=== PATIENT | female | born 1945 | race Caucasian/White ===

== ENCOUNTER 2021-10-11 08:01 | Outpatient (RCR) | payer MEDICARE, BC, SELFPAY | END 2022-01-18 17:20 | disposition home or self-care (01) | PROVIDERS: PCP Family Medicine; Visit Provider Physician Assistant Surgical | DX: M75.01 Adhesive capsulitis of right shoulder (principal); M25.511 Pain in right shoulder; Z51.89 Encounter for other specified aftercare | CPT/HCPCS: 97110 ==

== ENCOUNTER 2021-12-28 10:28 | Day surgery (SDC) | payer MEDICARE, BC, SELFPAY ==
[2021-12-22] MEDS: KETOROLAC OPHTH 0.5% 1 DROP EYE-RIGHT ×3 (18:30→18:40)
[2021-12-28 10:37] VITALS: BP 120/62; PULSE 58; RESP 16; TEMP 36.6; O2SAT 96; BMI 31.9
[2021-12-28] MEDS: TETRACAINE 0.5% OPHTH 1 DROP EYE-RIGHT ×2 (11:00→11:05)
[2021-12-28] MEDS: KETOROLAC OPHTH 0.5% 1 DROP EYE-RIGHT ×3 (11:00→11:10)
--- NOTE | 2021-12-28 11:21 | SUR.PREOP ---
The eye drops brought by the patient (Ketorolac and Prednisolone) are examined and I have determined they are labeled by the patient's pharmacy for this patient as prescribed by the surgeon. The bottles are intact, recently obtained and appear to be correct.
[2021-12-28] MEDS: TETRACAINE 0.5% OPHTH 2 DROP EYE-RIGHT (11:35)
[2021-12-28] MEDS: BALANCED SALT IRRIG SOLN 15 ML EYE-RIGHT (11:40)
--- NOTE | 2021-12-28 12:12 | W.ANESCHARGE ---
Anesthesia Charges Start Date/Time Anesthesia Start Date: 12/28/21 Anesthesia Start Time: 11:31 Stop Date/Time Anesthesia Stop Date: 12/28/21 Anesthesia Stop Time: 12:15 Summary Emergency: No Extremes of Age: Over 70-CPT 37916
[2021-12-28 12:15] VITALS: BP 143/75; PULSE 57; RESP 20; TEMP 36.5; O2SAT 97
--- NOTE | 2021-12-28 12:41 | W.PM.OPTPROC ---
Procedure Note Date of procedure: 12/28/21 Will [facility] bill your pro fee for this procedure?: Yes Procedure Description: SURGEON: Dior Wick MD PREOPERATIVE DIAGNOSIS: 1. Nuclear sclerotic cataract, right eye. 2. Miosis, right eye. POSTOPERATIVE DIAGNOSIS: 1. Nuclear sclerotic cataract, right eye. 2. Miosis, right eye. NAME OF OPERATION: Phacoemulsification of cataract with posterior chamber intraocular lens implantation in the right eye with pupilloplasty. ANESTHESIA: Topical. ESTIMATED BLOOD LOSS: Less than 2 cc. COMPLICATIONS: None. PATHOLOGY SPECIMEN: None. INDICATIONS: See consult note for details. The risks, benefits and alternatives of the procedure were explained to the patient, who elected to proceed and signed informed consent to do so. PROCEDURE: The patient was brought to the pre-holding area where the right eye was identified as the operative eye. I placed my initials above this eye. The patient received eye drops consisting of 0.5% tetracaine, 1% tropicamide, 10% phenylephrine, and 0.5% ketorolac. The patient was then brought to the operating room where the right eye was again identified as the operative eye. The eye was prepped with Betadine and draped in the usual sterile ophthalmic fashion. A #15 super-sharp blade was used to create a paracentesis site. 1% non-preserved intracameral lidocaine was injected into the anterior chamber. Endocoat was injected into the anterior chamber. A 2.4 mm keratome was used to create a three-plane self-sealing incision 1 mm anterior to the temporal limbus. A #15 super-sharp blade was used to create four additional paracentesis sites. Four Grieshaber iris hooks were placed in order to stretch the iris. A cystotome was used to create an anterior capsular leaflet. The Utrata forceps were used to extend this to form a continuous curvilinear capsulorrhexis. Hydrodissection was performed. The cataract was removed with phacoemulsification using the [id number] technique. The irrigation and aspiration tip was used to remove the remaining cortex. Healon was injected into the capsular bag. An GAVINO ZCB00 intraocular lens of 21.0 diopters was injected into the capsular bag. The four Grieshaber iris hooks were removed. The irrigation and aspiration tip was used to remove the remaining viscoelastic. Miostat was injected into the anterior chamber. Balanced salt solution on a cannula was used to hydrate the wound, and the wound was found to be watertight. The pupil was noted to be round. DISPOSITION: The patient was taken to the recovery room and discharged to home in stable condition. The patient was instructed to call me or go to the emergency department with any sudden change, including dramatic loss of vision, severe pain in the eye or eyebrow region, nausea, or vomiting. The patient will follow up in the clinic tomorrow morning. Surgeon: Dior Wick MD
== END 2021-12-28 12:47 | disposition home or self-care (01) ==
PROVIDERS: PCP Family Medicine; Visit Provider Ophthalmology
PROC: (CPT 66982; principal; 2021-12-28 10:30)
DX: H25.11 Age-related nuclear cataract, right eye (principal); H57.03 Miosis
CPT/HCPCS: 66982; 00142; 99100; A9270; J2250; J3010; V2632

== ENCOUNTER 2022-01-18 06:40 | Day surgery (SDC) | payer MEDICARE, BC, SELFPAY ==
[2022-01-18] MEDS: KETOROLAC OPHTH 0.5% 1 DROP EYE-LEFT ×3 (06:55→07:10)
[2022-01-18] MEDS: TETRACAINE 0.5% OPHTH 1 DROP EYE-LEFT ×2 (06:55→07:00)
[2022-01-18 07:00] VITALS: BMI 34.9
[2022-01-18] MEDS: SODIUM CHLORIDE 0.9 % (FLUSH) 10 ML SYRINGE IVF (07:05)
[2022-01-18 07:24] VITALS: BP 138/71; PULSE 62; RESP 18; TEMP 36.8
--- NOTE | 2022-01-18 07:47 | SUR.PREOP ---
needing to do a covid swab called [facility] and test has not been resulted yet
[2022-01-18] MEDS: TETRACAINE 0.5% OPHTH 2 DROP EYE-LEFT (08:02)
[2022-01-18 08:08] LABS: SARS Antigen* negative (Negative)
[2022-01-18] MEDS: BALANCED SALT IRRIG SOLN 15 ML EYE-LEFT (08:08)
[2022-01-18 08:34] VITALS: BP 147/67; PULSE 56; RESP 16; TEMP 36.7; O2SAT 96
--- NOTE | 2022-01-18 08:42 | W.ANESCHARGE ---
Anesthesia Charges Start Date/Time Anesthesia Start Date: 01/18/22 Anesthesia Start Time: 08:00 Stop Date/Time Anesthesia Stop Date: 01/18/22 Anesthesia Stop Time: 08:40 Summary Emergency: No Extremes of Age: Over 70-CPT 61942
--- NOTE | 2022-01-18 09:07 | W.ANESCHARGE ---
Anesthesia Charges Start Date/Time Anesthesia Start Date: 01/18/22 Anesthesia Start Time: 08:00 Stop Date/Time Anesthesia Stop Date: 01/18/22 Anesthesia Stop Time: 08:40 Summary Emergency: No Extremes of Age: Over 70-CPT 77174
--- NOTE | 2022-01-18 09:37 | P.OPTPRC_ITS ---
Procedure Note Date of procedure: 01/18/22 Will [facility] bill your pro fee for this procedure?: Yes Procedure Description: SURGEON: Dior Wick MD PREOPERATIVE DIAGNOSIS: 1. Nuclear sclerotic cataract, left eye. 2. Miosis, left eye. POSTOPERATIVE DIAGNOSIS: 1. Nuclear sclerotic cataract, left eye. 2. Miosis, left eye. NAME OF OPERATION: Phacoemulsification of cataract with posterior chamber intraocular lens implantation in the left eye with pupilloplasty. ANESTHESIA: Topical. ESTIMATED BLOOD LOSS: Less than 2 cc. COMPLICATIONS: None. PATHOLOGY SPECIMEN: None. INDICATIONS: See consult note for details. The risks, benefits and alternatives of the procedure were explained to the patient, who elected to proceed and signed informed consent to do so. PROCEDURE: The patient was brought to the pre-holding area where the left eye was identified as the operative eye. I placed my initials above this eye. The patient received eye drops consisting of 0.5% tetracaine, 1% tropicamide, 10% phenylephrine, and 0.5% ketorolac. The patient was then brought to the operating room where the left eye was again identified as the operative eye. The eye was prepped with Betadine and draped in the usual sterile ophthalmic fashion. A #15 super-sharp blade was used to create a paracentesis site. 1% non-preserved intracameral lidocaine was injected into the anterior chamber. Endocoat was injected into the anterior chamber. A 2.4 mm keratome was used to create a three-plane self-sealing incision 1 mm anterior to the temporal limbus. A #15 super-sharp blade was used to create four additional paracentesis sites. Four Grieshaber iris hooks were placed in order to stretch the iris. A cystotome was used to create an anterior capsular leaflet. The Utrata forceps were used to extend this to form a continuous curvilinear capsulorrhexis. Hydrodissection was performed. The cataract was removed with phacoemulsification using the [id number] technique. The irrigation and aspiration tip was used to remove the remaining cortex. Healon was injected into the capsular bag. An GAVINO ZCB00 intraocular lens of 21.5 diopters was injected into the capsular bag. The four Grieshaber iris hooks were removed. The irrigation and aspiration tip was used to remove the remaining viscoelastic. Miostat was injected into the anterior chamber. Balanced salt solution on a cannula was used to hydrate the wound, and the wound was found to be watertight. The pupil was noted to be round. DISPOSITION: The patient was taken to the recovery room and discharged to home in stable condition. The patient was instructed to call me or go to the emergency department with any sudden change, including dramatic loss of vision, severe pain in the eye or eyebrow region, nausea, or vomiting. The patient will follow up in the clinic tomorrow morning. Surgeon: Dior Wick MD
== END 2022-01-18 09:20 | disposition home or self-care (01) ==
PROVIDERS: PCP Family Medicine; Visit Provider Ophthalmology
PROC: (CPT 66982; principal; 2022-01-18 06:45)
DX: H25.12 Age-related nuclear cataract, left eye (principal); H57.03 Miosis
CPT/HCPCS: 66982; 00142; 87426; 99100; A9270; J2250; J3010; V2632

== ENCOUNTER 2022-02-20 06:26 | Day surgery (SDC) | payer MEDICARE, BC, SELFPAY ==
[2022-02-20] VITALS (11 sets, daily range): BP systolic 134–181; BP diastolic 71–95; PULSE 60–68; RESP 16–18; TEMP 36.4–36.7; O2SAT 95–99; BMI 31.8
[2022-02-20] MEDS: lidocaine HCL 2 % MULTIDOSE 20 ML VIAL INJECTION (07:00)
[2022-02-20] MEDS: BUPIVACAINE 0.5% 30 ML INJECTION (07:00)
--- NOTE | 2022-02-20 08:33 | PM.ORPRC ---
Procedure Note Date of procedure: 02/20/22 Procedure: PREOPERATIVE DIAGNOSIS: 1. Left dorsal long finger overlying PIP joint region benign mass POSTOPERATIVE DIAGNOSIS: 1. Left dorsal long finger overlying PIP joint region benign mass PROCEDURE: 1. Left dorsal long finger benign mass open excision (5 mm in diameter) SURGEON: Blayne Rollins MD. MACHINE FANCY STITCHER: Michele Arora PA-C - Of note, an inventory control assistant was critical for this case to aid in patient positioning, tissue retraction, limb manipulation/positioning, patient safety, & closure. ANESTHESIA: Local anesthetic (50:50 mixture of 2% lidocaine plain and 0.5% marcaine plain)-10 mL total for digital block EBL: Less than 5 mL IMPLANTS: None TOURNIQUET: 10 minutes digital tourniquet COMPLICATIONS: None evident INDICATIONS: The patient is a pleasant 76-year-old female who has experienced left dorsal long finger mass/growth developing over the course of the last few months. It is becoming large enough to start to catch on things such as putting her hand in her pocket or other things around the house. Given the failure of nonoperative management, and how this affects daily life, surgery was recommended. DESCRIPTION OF PROCEDURE: Following a thorough discussion of risks, benefits, and alternatives consent was obtained and the operative extremity was marked. The patient was brought to the operating room and placed supine on the operating table. No antibiotics were administered as this was planned to be a local case only. Proper time-out was performed identifying proper patient, site, and procedure. The operative extremity was prepped and draped in the appropriate sterile fashion using ChloraPrep. The limb was exsanguinated and the tourniquet inflated. A longitudinal incision was made on the dorsal aspect of the left long finger overlying the PIP joint immediately overlying this growth/tumor. Sharp incision through the skin, and blunt dissection through subcutaneous tissue allowed us to identify the tumor readily. It was mobilized from the surrounding subcutaneous tissue. It appeared to be intimate with the extensor tendon itself. It did not appear to be encapsulated but rather thickening of the extensor tendon mechanism. It was sharply divided with a 15 blade around its edges down to its true extensor tendon. We did divide longitudinally the extensor tendon to further inspect the medially deep, but did not see any further growth. The specimen was sent for permanent pathology. At this stage, the tourniquet was deflated and hemostasis achieved. Closure was performed with 4-0 Monocryl and Exofin glue. Soft dressings were applied, and the patient was awoken/transferred to the recovery room in stable condition. PLAN: 1. Encourage elevation of the operative extremity. 2. Range of motion of the operative extremity/digits as tolerated. 3. Ibuprofen, acetaminophen and/or Percocet as needed for pain. 4. Follow up with PA visit in 12-16 days for wound check.
== END 2022-02-20 08:41 | disposition home or self-care (01) ==
PROVIDERS: PCP Family Medicine; Visit Provider Orthopaedic Surgery Sports Medicine
PROC: (CPT 26160; principal; 2022-02-20 07:30)
DX: M67.442 Ganglion, left hand (principal)
CPT/HCPCS: 26160; 88305; J3490

== ENCOUNTER 2024-05-22 06:24 | Emergency (ER) | payer MEDICARE, BC, SELFPAY ==
[2024-05-22 06:31] VITALS: BP 161/79; PULSE 60; RESP 16; TEMP 36.6; O2SAT 98
[2024-05-22 06:39] LABS: Appearance Urine Slightly Cloudy (Clear); Bilirubin Urine 3+ (Negative); Blood Urine 3+ (Negative); Color Urine Red (Yellow); Glucose Urine Trace (Negative); Ketones Urine 1+ (Negative); Leukocyte Esterase Urine 3+ (Negative); Nitrite Urine Negative (Negative); Protein Urine 3+ (Negative); Specific Gravity Urine <= 1.005 (1.000-1.030); pH Urine 8.5 (5.0-8.5)
[2024-05-22 06:58] LABS: Bacteria Urine Moderate; RBC Urine >100 (0-2); Squamous Epithelial Cell Urine Moderate (None-Few); WBC Urine 25-50 (0-5)
--- NOTE | 2024-05-22 07:19 | ED.GENADULT ---
HPI - General Adult General Chief complaint: Urogenital Problems, Female Stated complaint: Blood in urine Time Seen by Provider: 05/22/24 06:42 Source: patient Mode of arrival: ambulatory Limitations: no limitations History of Present Illness HPI narrative: Patient woke this morning 2-1/2 hours ago with feeling of intense urinary frequency and urgency. She had burning with initial urination this morning and then within about 15 minutes, had the sudden urge to urinate again. She continued to have this every 15-20 minutes, gradually noticing pink tinged urine and then iliana bloody urine over the course of the couple of hours. She called the clinic triage line and was advised to come to the emergency department because of the bleeding. She does not take any anticoagulants, has no history of trauma. She was asymptomatic last night when she went to bed. No fever, no back pain, no nausea or vomiting. No history of kidney stones. Is still exhibiting significant frequency and urgency as well as some dysuria. Has not tried any peridium or other similar medications to help with symptoms. No history of urological surgeries but has had a hysterectomy. Reports normal kidney function. Just saw her safety instruction police officer yesterday. Reports that she has never had a bladder infection before. Past medical history notable for hypertrophic cardiomyopathy. She is treated with metoprolol and atorvastatin for this. Denies other long-term prescription medications. No allergies. Nonsmoker. She has also had a cholecystectomy as well as the hysterectomy for abdominal surgeries. ROS is notable for the urinary symptoms only, otherwise denies times 12 systems. Related Data Home Medications ?Medication ?Instructions ?Recorded ?Confirmed atorvastatin 20 mg PO HS 12/17/21 05/22/24 cholecalciferol (vitamin D3) 25 25 mcg PO DAILY 12/27/21 05/22/24 mcg (1,000 unit) capsule famotidine 20 mg tablet 20 mg PO BID PRN 12/27/21 05/22/24 metoprolol succinate 25 mg 25 mg PO DAILY 12/27/21 05/22/24 tablet,extended release 24 hr Previous Rx's ?Medication ?Instructions ?Recorded ciprofloxacin HCl 500 mg tablet 500 mg PO Q12H #14 tabs 05/22/24 Allergies Allergy/AdvReac Type Severity Reaction Status Date / Time No Known Drug Allergies Allergy Verified 02/22/24 10:26 [facility] Medical History GROVER on CPAP ?G47.33 - Obstructive sleep apnea (adult) (pediatric) (ICD-10) ?Z99.89 - Dependence on other enabling machines and devices (ICD-10) Obesity ?E66.9 - Obesity, unspecified (ICD-10) Impaired fasting glucose ?R73.01 - Impaired fasting glucose (ICD-10) Hypertrophic cardiomyopathy ?I42.2 - Other hypertrophic cardiomyopathy (ICD-10) Hyperlipidemia ?E78.5 - Hyperlipidemia, unspecified (ICD-10) Closed fracture of unspecified part of humerus ?S42.309A - Unspecified fracture of shaft of humerus, unspecified arm, initial encounter for closed fracture (ICD-10) Cellulitis and abscess of other specified site ?L03.818 - Cellulitis of other sites (ICD-10) ?L02.818 - Cutaneous abscess of other sites (ICD-10) Anal fissure ?K60.2 - Anal fissure, unspecified (ICD-10) Surgical History History of excision of mass (02/20/22) ?Z98.890 - Other specified postprocedural states (ICD-10) Hx of rhinoplasty ?Z98.890 - Other specified postprocedural states (ICD-10) Hx of hysterectomy ?Z90.710 - Acquired absence of both cervix and uterus (ICD-10) History of total left knee replacement (TKR) (~12/2010) ?Z96.652 - Presence of left artificial knee joint (ICD-10) Hx of dilation and curettage ?Z98.890 - Other specified postprocedural states (ICD-10) Hx of colonoscopy ?Z98.890 - Other specified postprocedural states (ICD-10) Hx of cholecystectomy ?Z90.49 - Acquired absence of other specified parts of digestive tract (ICD-10) Social History Smoking Status: Never smoker Do you use any of these nicotine containing products: None How often do you have a drink containing alcohol: monthly or less Alcohol type: wine How many standard drinks containing alcohol do you have on a typical day: 1 or 2 How often do you have six or more drinks on one occasion: Never AUDIT-C Alcohol total score: 1 Non-prescribed substance use: denies use Caffeine: Yes (daily) Are you using contraception or practicing any form of control: No Exam Const: Vital Signs, click to edit/add: Vital Signs - 24 hr 05/22/24 06:31 Temperature 97.8 F Pulse Rate [Pulse Oximeter] 60 Respiratory Rate 16 Blood Pressure [Ri ght Upper Arm] 161/79 H Pulse Oximetry 98 Oxygen Delivery Me thod Room Air Documenting provider has reviewed patient's vital signs: yes Common normals: no apparent distress and alert General appearance: cooperative and well kempt Other: Very friendly and cooperative. Excellent historian. HENMT: Face and sinus: normal facial exam Eye: General eye: normal appearance of both eyes Neck & C-Spine: General: normal visual inspection Resp: Common normals: normal respiratory effort and no use of accessory muscles Effort & inspection: able to speak in complete sentences GI: Common normals: Normal to inspection, nondistended, normoactive bowel sounds present, soft to palpation, non-tender, no hepatosplenomegaly and no masses Palpation: soft and no hepatosplenomegaly : Common normals: no CVA tenderness Bladder/kidney exam: no CVA tenderness Back & Pelvis: Common normals: no CVA tenderness Neuro: Common normals: gait normal Sensorium/orientation: alert Speech: speech normal Psych: Common normals: speech normal Appearance: well kempt Attitude: engaged Speech: normal speech Mood and affect: euthymic mood Insight: insight good Judgement: judgment good Skin: Common normals: no rashes or lesions noted General skin exam: no rashes or lesions noted Course Course ED Course: 78-year-old female presenting with symptoms of urinary urgency, frequency and dysuria and iliana hematuria. No anticoagulants or signs of significant persistent hemorrhage. Exam is very reassuring. Urinalysis is reviewed and is very suspicious for urinary tract infection. No signs of sepsis, pyelonephritis or urinary trauma. Counseled patient that in these settings if there is clear indication that and infection is present, it is best to treat for the infection and do further workup only if the bleeding does not resolve. She is understanding and agreeable to this plan. Will start ciprofloxacin 500 mg p.o. b.i.d. for 7 days, a give dose of Pyridium and Tylenol here in the ED. Counseled the cherry picker operator some more Pyridium, urinary color changes discussed. Prescription for ciprofloxacin sent to pharmacy as well. Counseled that symptoms should improve markedly within about 24 hours, the bleeding should cease within 48 hours. If the bleeding has not ceased in a few days, she should follow-up in the clinic promptly for further evaluation. Otherwise just because of the amount of bleeding and potential that this could be from an underlying bladder mass or other more troublesome etiology, I have recommended a follow-up urinalysis in the clinic in 4-6 weeks. If the hematuria is absent, no further workup is needed but if still present, would recommend urology referral for cystoscopy and evaluation. Written instructions provided, alarm symptoms reviewed that would warrant ED presentation. Urine will be cultured to ensure appropriate antibiotic treatment. Vital Signs Vital signs: Initial Vital Signs Temperature 97.8 F 05/22/24 06:31 Temperature Source Temporal Artery Scan 05/22/24 06:31 Pulse Rate 60 05/22/24 06:31 Respiratory Rate 16 05/22/24 06:31 Blood Pressure 161/79 H 05/22/24 06:31 Blood Pressure Mean 106 H 05/22/24 06:31 Blood Pressure Position Sitting 05/22/24 06:31 Pulse Oximetry 98 05/22/24 06:31 Oxygen Delivery Method Room Air 05/22/24 06:31 Vital Signs Temperature 97.8 F 05/22/24 06:31 Pulse Rate 60 05/22/24 06:31 Respiratory Rate 16 05/22/24 06:31 Blood Pressure 161/79 H 05/22/24 06:31 Pulse Oximetry 98 05/22/24 06:31 Oxygen Delivery Method Room Air 05/22/24 06:31 Temperature 97.8 F 05/22/24 06:31 Pulse Rate 60 05/22/24 06:31 Respiratory Rate 16 05/22/24 06:31 Blood Pressure 161/79 H 05/22/24 06:31 Pulse Oximetry 98 05/22/24 06:31 Oxygen Delivery Method Room Air 05/22/24 06:31 Medical Decision Making Lab Data Lab results reviewed: Yes I reviewed the patient's lab results Lab results narrative: Lots of blood but also signs of infection. Labs: Lab Results 05/22/24 Range/Units 06:32 Urine Color Red A (Yellow) Urine Appearance Slightly Cloudy A (Clear) Urine pH 8.5 (5.0-8.5) Ur Specific [place] <= 1.005 (1.000-1.030) Urine Protein 3+ A (Negative) Urine Glucose (UA) Trace A (Negative) Urine Ketones 1+ A (Negative) Urine Blood 3+ A (Negative) Urine Nitrite Negative (Negative) Urine Bilirubin 3+ A (Negative) Urine Urobilinogen 2.0 A (0.2-1.0) Ur Leukocyte Esterase 3+ A (Negative) Urine RBC >100 A (0-2) Urine WBC 25-50 A (0-5) Ur Squamous Epith Cells Moderate A (None-Few) Urine Bacteria Moderate A (None) Discharge Plan Discharge Clinical Impression: Acute hemorrhagic cystitis Patient Disposition: Home w/ Parent or Adult Condition: Stable Instructions: Urinary Tract Infection in Women (DC) Additional Instructions: As we discussed, the blood in your urine is likely caused by the infection that is also apparent. That is not seem to be any obvious signs of a kidney infection, bloodstream infection or other reason based on your history and limited exam. I would recommend that we empirically treat for the bladder infection as most of the time this does cause the bleeding to slow down and stop within a few days. It is okay to use Tylenol 1000 mg 3 times daily for pain relief. You were given a dose of this here in the emergency department. Your also given a dose of phenazopyridine, a medication that is also sold [id number] under a ?urinary pain relief? label. I would recommend that you pick some of this up today when you cherry picker operator your antibiotic and take another dose this afternoon and possibly 1 at bedtime if you are still symptomatic. Remember that it will turn your urine neon orange. Sometimes if there is a lot of bleeding and blood clot formation, it may feel like you are physically unable to empty your bladder. If that happens, he should come back to the emergency department. For most people, symptoms approved markedly in 24 hours after starting antibiotics and the bleeding tends to cease within about 48 hours. If you are still noticing blood after 5 days, you should be seen in the clinic for follow-up. We would recommend that you make a follow-up appointment in 4-6 weeks to have your urine rechecked in the clinic to ensure that the bleeding has resolved and was not the sign of a hidden tumor or other complication. The antibiotic will be taken 1 pill 2 times daily for a full week. We will culture your urine and if there are signs that the infection was somehow resistant to this antibiotic, we will call you and change antibiotics. No news is good news. Come back right away to the emergency department if you have urinary retention as described above, persistent high fever, severe back pain or are exiting severe weakness. These would all be signs of infection complications. Activity Level: Activity as Tolerated Discharge Diet: Regular Prescriptions: New ciprofloxacin HCl 500 mg tablet 500 mg PO Q12H Qty: 14 0RF No Action atorvastatin 20 mg PO HS famotidine 20 mg tablet 20 mg PO BID PRN metoprolol succinate 25 mg tablet extended release 24 hr 25 mg PO DAILY cholecalciferol (vitamin D3) 25 mcg (1,000 unit) capsule 25 mcg PO DAILY Follow Up/Referrals: Nadeem Ramirez MD [Primary Care Provider] - (4-5 weeks for urine recheck to ensure the bleeding has resolved.) Stand Alone Forms: [employer] Info Instructions
[2024-05-22] MEDS: CIPROFLOXACIN 500 MG TABLET PO (07:22)
[2024-05-22] MEDS: PHENAZOPYRIDINE HCL 200 MG TABLET PO (07:23)
[2024-05-22] MEDS: ACETAMINOPHEN 500 MG TABLET 1000 MG PO (07:23)
--- OUTSIDE RECORDS SUMMARY | 2024-05-22 07:29 | XMS_ITS | Clinical Summary ---
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 0 4 Active atorvastatin (LIPITOR) 40 mg tabletIndications:H yperlipidemia, unspecified hyperlipidemia type Take 1 Tablet (40 mg) by mouth at bedtime. 90 Tablet 3 4 Active famotidine (PEPCID) 20 mg tabletIndications:C hronic GERD Take 1 Tablet (20 mg) by mouth 2 times daily if needed for Heartburn. 180 Tablet 3 4 Active metoprolol succinate (Toprol XL) 50 mg sustained-release tabletIndications:H ypertrophic cardiomyopathy (HC) Take 1 Tablet (50 mg) by mouth once daily. 90 Tablet 3 4 Active Active Problems Patient Care Coordination No te Formatting of this note migh t be different from the original. HF/Structural/Prevention Research Eligibility Review Date: 03/10/19 Upcoming Visit Location: [facility] Age: 73 y.o. Insurance: Medicare EF: 60+ HF: DNQ Structural: DNQ Prevention: Triglycerides: 77 HDL: 64 Non-HDL: 101 LDL: 86 A1c: 5.6 Diabetes: no Vesalius: Potential Problem Noted Date Diagnosed Date Mild aortic stenosis 05/20/2024 Overweight 12/13/2021 Prediabetes 11/22/2020 Obstructive sleep apnea 10/21/2019 Hypertrophic cardiomyopathy 06/04/2019 Hyperlipidemia 09/04/2017 Personal history of colonic polyps 03/02/2011 Overview (05/11/2022): Colonoscopy 02/2011 normal repeat in 5 years Colonoscopy 04/2022 TA, repeat in 7 years Resolved Problems Problem Noted Date Diagnosed Date Resolved Date Routine general medical exam ination at a health care facility 06/11/2007 11/22/2020 Overview (06/12/2007): Lipids - 10/31/05, cholesterol 220, LDL 140, TG 84 Dexa- 02/25/03 mammo-06/12/07 Colon - 11/22/05, next due in 2010, h/o colon polyps Pap/pelvic -none found, s/p hysterectomy for fibroids Thyroid- none found Hep B- series completed in 1999 Tetanus- Diabetic-no Encounters Date Type Department Care Team Description 05/22/2024 Nurse Triage [facility] [address] [place] [address] Nadeem Ramirez MD Urinary Problem 05/20/2024 9:[address] REPORTER Office Visit [facility] [address] [place] [address] Junior Almonte MD Follow Up (Hypertrophic cardiomyopathy /Zio patch 04/15/24/Echo 05/12/24 ) 05/20/2024 Travel 05/15/2024 Telephone [facility] [address] [place] [address] Nadeem Ramirez MD other (xray ) 05/12/2024 9:[address] REPORTER Ancillary Procedure [facility] [address] [place] [address] 05/12/2024 Travel 05/07/2024 3:[address] REPORTER Ancillary Procedure [facility] [address] [place] [address] 05/07/2024 2:[address] REPORTER Office Visit [facility] [address] [place] [address] Nadeem Ramirez MD Headache (Working with PT for headaches - PT recommending follow up with PCP for further work up. ) 05/07/2024 Travel 04/15/2024 8:[address] REPORTER Office Visit [address] [place] [address] from Last 3 Months Immunizations Name Administration Dates Next Due COVID-19 VACCINE SPIKEVAX (M ODERNA 50MCG/0.5ML) 12YO+ PFS 12/19/2023 DTaP 09/05/2017 Hepatitis B (Adult) 10/05/1999,03/02/1999,1998 Influenza A (H1N1), Inactivated 03/31/2009 Influenza A (H1N1), Inactiva valorie (Age >=3 Years) 03/31/2009 Influenza RIV4 (Age 18+ Year s) PRESERV FREE 01/27/2019 Influenza, High-dose Inactivated 024,12/29/2017,12/28/2016,02/08,12/26/2014,01/12/2014 Influenza, High-dose Quadriv alent Inactivated 01/09/2023,12/19/2021,12/24/2020,12/09 Influenza, IIV3 (Age 6-35 mos) 12/09/2008 Influenza, IIV3 (Age >=3 years) 01/05/20 13,12/14/2011,01/29/2011,01/18,12/08/2008,02/03/2008,02/01/2007 ,01/07/2007,03/05/2003,03/11/2002,01/26 Pneumococcal Conj 20-valent (Prevnar 20) 12/14/2022 Pneumococcal Poly,23-Valent (Pneumovax) 11/10/2011 Pneumococcal conj 13-Valent (Prevnar 13) 10/21/2014 RSV, Recombinant ADJ Reconst ituted (Arexvy 120MCG/0.5mL) 12/23/2022 Td (Age >=7 Years) 01/24/1999 Tdap 09/05/2017,06/12/2007 Tuberculin (PPD) 06/01/2008 Zoster (Shingrix-RZV, recombinant) 11/19/2017, Zoster (Zostavax-ZVL, live) 06/01/2008 Family History Medical History Relation Name Comments Emphysema Father Heart Disease Father [place] at 40, at 67 Heart Disease Maternal Aunt Heart Disease Maternal Uncle 1 Other Maternal Uncle 2 AAA Heart Disease Mother at 97 Osteoporosis Mother Other Mother sleep apnea/use s CPAP Anesthesia Problem Neg. Cancer-breast No Family History Cancer-colon No Family History Cancer-ovarian No Family History Relation Name Status Comments Father Maternal Aunt Maternal Uncle 1 Maternal Uncle 2 Mother Alive Neg. Social History Tobacco Use Types Packs/Day Years Used Date Smoking Tobacco: Never Smokeless Tobacco: Never Tobacco Cessation:Counseling Given: Yes Alcohol Use Standard Drinks/Week Comments Yes 0 (1 standard drink = 0.6 oz pur e alcohol) rare PHQ-2 Answer Date Recorded PHQ-2 TOTAL SCORE 0 12/19/2023 Social Connections Answer Date Recorded Do you often feel lonely or isolated from those around you? 0 12/19/2023 Financial Resource Strain Answer Date R ecorded Difficulty of Paying Living Expenses 3 12/19/2023 Difficulty of Paying Living Expenses Not on file 12/19/2023 Food Insecurity Answer Date Recorded Do you worry your food will run out before you are able to buy more? 1 12/19/2023 Transportation Needs Answer Date Record ed Does lack of transportation keep you from medica l appointments? 1 12/19/2023 Does lack of transportation keep you from work, meetings or getting things that you need? 1 12/19/2023 Housing Stability Answer Date Recorded What is your housing situation today? 1 12/19/2023 Utilities Answer Date Recorded Do you have trouble paying f or utilities (for example, heat, electricity, water, phone)? 1 12/19/2023 Comments No Sex and Gender Information Value Date Recorded Sex Assigned at Not on file Legal Sex Female 6:[address] REPORTER Gender Identity Not on file Sexual Orientation Not on file Obstetrics History Last Filed Vital Signs Vital Sign Reading Time Taken Comments Blood Pressure 110/65 05/20/2024 9:[address] REPORTER Pulse 73 05/20/2024 9:[address] REPORTER Temperature 37.7 C (99.8 F) 07/06/2022 8:54 AM CDT Respiratory Rate 11 11/28/2022 2:09 PM CDT Oxygen Saturation 96% 05/20/2024 9:[address] REPORTER Inhaled Oxygen Concentration - - Weight 83.9 kg (185 lb) 05/20/2024 9:[address] REPORTER Height 163.7 cm (5' 4.45) 12/19/2023 1:55 PM CD T Body Mass Index 31.31 12/19/2023 1:55 PM CDT Plan of Treatment Upcoming Encounters Date Type Department Care Team (Late st Contact Info) Description 07/11/2024 9:40 AM CDT Office Visit [facility] [address] [place] [address] Joseph Rosario MD [address] [place] [address] Health Maintenance Due Date Last Done Comments BMI (ht and wt on same day) for age 18+ 12/18/2024 12/19/2023, 12/14/2022, 12/26/2021, Additional history exists Depression screening for age 12+ 12/18/2024 12/19/2023, 12/14/2022, 12/14/2021, Additional history exists Medicare Wellness for age 65+ 12/19/2024, 12/14/2022, 12/13/2021, Additional history exists Tetanus booster 09/06/2027 09/05/2017, 05/24, 01/24/1999 Hepatitis C screening for ag e 18-79 Completed 02/10/2016, 04/29/2013 Tdap Completed 09/05/2017, 06/12/2007 Zoster (shingles) series for age 50+ Completed 11/19/2017, 09/05/2017, 06/01/2008 Pneumococcal series for age 50+ Completed 12/14/2022, 10/21/2014, 11/10/2011 RSV vaccine for adults or Completed 12/23/2022 COVID-19 vaccine series Completed 12/19/19 24, 06/11/2023, 01/09/2023, Additional history exists DEXA/DXA scan for age 65+ Completed 2023, 09/24/2018, 05/13/2013, Additional history exists Influenza for age 65+ Completed 01/14/2024 , 01/09/2023, 12/19/2021, Additional history exists Procedures Procedure Name Priority Date/Time Associated Diagnosis Comments ECHO TTE COMPLETE WO CONTRAST Routine 05/12/2024 9:[address] REPORTER Hypertrophic cardiomyopathy (HC) XR SPINE CERVICAL 3 VIEWS Routine 05/07/2024 3:[address] REPORTER Neck pain, chronic 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 Routine 04/15/2024 Hypertrophic cardiomyopathy (HC) XR DXA BONE DENSITY 2 SITES AXIAL Routine 12/24/2023 9:20 AM CDT Asymptomatic postmenopausal state ANTI HCV Routine 02/10/2016 7:[address] REPORTER Need for hepatitis C screening test from Last 3 Months or Most Recently Relevant to Health Maintenance Results * ECHO TTE COMPLETE WO CONTRAST (05/12/2024 9:[address] REPORTER) AORTIC VALVE MEAN PG 16 mmHg EJECTION FRACTION 76 % PEAK TR VELOCITY 2.9 m/s LVEDD 4.3 cm Anatomical Region Laterality Modality Ultrasound 05/12/2024 9:[address] REPORTER Narrative 05/12/2024 10:[address] REPORTER ECHOCARDIOGRAM NATIVIDAD CAMPO : 1945 78 years Study Date: 05/12/2024 9:09:06 AM Gender: F BP: 147/80 mmHg Height: 163.00 cm BSA: 1.91 m Weight: 85.00 kg Tech: MHR Referring MD: DARRYL IRIZARRY Site: [facility] Reading Location: MOBILE OP Patient Location: Outpatient. Procedure: 2D, Color Doppler and Spectral Doppler. Indication for study: hypertrophic cardiomyopathy Cardiac Rhythm: Regular.Study quality: Technically limited. Final Impressions: 1. Technically limited exam. 2. Normal left ventricular size, mildly increased wall thickness, hyperdynamic global systolic function, calculated EF of 76 %. 3. Grade 2 pattern of LV diastolic filling. 4. Severe asymmetric left ventricular hypertrophy. 5. Right ventricular cavity size is normal, global systolic RV function is normal. 6. Moderately enlarged left atrium. 7. The aortic valve is calcified and trileaflet, mild stenosis and trivial regurgitation. The aortic valve peak velocity is 2.4 m/s, the peak gradient is 23 mmHg, and the mean gradient is 16 mmHg. The aortic valve area is 2.69 cm with a dimensionless index of 0.93. The stroke volume index is 83.8 ml/m . 8. The mitral valve is normal, mild mitral regurgitation. 9. Tricuspid valve is normal. 10. No pericardial effusion. Chamber Sizes and Function Normal left ventricular size, mildly increased wall thickness, hyperdynamic global systolic function, calculated EF of 76 %. Severe asymmetric left ventricular hypertrophy. No resting regional wall motion abnormality visualized. Left atrial size is moderately enlarged. Right ventricular cavity size is normal, global systolic RV function is normal. RV wall thickness is normal. The right atrium is normal. Right atrial volume index is 15 ml/m . Right atrial area is 13 cm . The pulmonary artery is of normal size and origin. The sinus of Valsalva is normal sized. The ascending aorta is normal sized. Valves, RV Pressures and Diastolic Function The aortic valve is calcified and trileaflet, mild stenosis and trivial regurgitation. The mitral valve is normal in structure, mild mitral regurgitation. Spectral Doppler shows Grade 2 pattern of LV diastolic filling. The tricuspid valve is normal in structure. Tricuspid regurgitation is mild regurgitation. The tricuspid regurgitant velocity is 2.9 m/s, the estimated right ventricular systolic pressure is 33 mmHg plus right atrial pressure. There is mildly increased estimated pulmonary pressure by tricuspid regurgitation velocity and right atrial pressure. The pulmonic valve is normal. No pulmonary regurgitation. Masses, Effusion, Shunts There is no pericardial effusion. The inferior vena cava is normal sized, respiratory size variation greater than 50%. No left to right shunting was detected by limited color flow Doppler interrogation of the interatrial septum. MEASUREMENTS AND CALCULATIONS 2-D Measurements and LV Function: LVID (d) 4.3 cm Planimetered EF 76 % LVID (s) 2.2 cm LV FS% (2D) 48 % IVS (d) 1.3 cm LVOT diameter 1.9 cm LVPW (d) 1.0 cm HR 59 bpm Ao Sinus 3.0 cm LA Vol index 44 ml/m2 Ao ST junct 2.7 cm RA Vol index 15 ml/m2 Asc Ao 3.5 cm RA area 13 cm LA 4.4 cm RV Max 4C (d) 2.9 cm Diastology: Mitral Tissue Doppler E Peak 1.1 m/s e', Septum 0.05 m/s A Peak 1.1 m/s e', Lateral 0.05 m/s E/A 1.0 E/e' Average 20.96 DT 287 msec Aortic Valve: Vmax 2.4 m/s HAMZAH (V) 2.67 cm VTI 0.59 m HAMZAH (I) 2.69 cm LVOT V max 2.2 m/s Max PG 23 mmHg LVOT VTI 0.55 m Mean PG 16 mmHg SV 160 ml Dim Index 0.93 SV index 84 ml/m CO 9.4 l/min CI 4.9 l/min/m Mitral Valve: MVA 2.6 cm MV P 1/2 83 msec Tricuspid Valve and estimated PA pressures: TR Vmax 2.9 m/s TAPSE 2.6 cm TR maxG 33 mmHg . This study was interpreted by an [facility] accredited facility. Final Procedure Note Paige Reyes, [facility] - 05/12/2024 ECHOCARDIOGRAM NATIVIDAD CAMPO : 1945 78 years Study Date: 05/12/2024 9:09:06 AM Gender: F BP: 147/80 mmHg Height: 163.00 cm BSA: 1.91 m Weight: 85.00 kg Tech: R Referring MD: DARRYL IRIZARRY Site: [facility] Reading Location: MOBILE OP Patient Location: Outpatient. Procedure: 2D, Color Doppler and Spectral Doppler. Indication for study: hypertrophic cardiomyopathy Cardiac Rhythm: Regular.Study quality: Technically limited. Final Impressions: 1. Technically limited exam. 2. Normal left ventricular size, mildly increased wall thickness,hyperdynamic global systolic function, calculated EF of 76 %. 3. Grade 2 pattern of LV diastolic filling. 4. Severe asymmetric left ventricular hypertrophy. 5. Right ventricular cavity size is normal, global systolic RV functionis normal. 6. Moderately enlarged left atrium. 7. The aortic valve is calcified and trileaflet, mild stenosis andtrivial regurgitation. The aortic valve peak velocity is 2.4 m/s, the peakgradient is 23 mmHg, and the mean gradient is 16 mmHg. The aortic valvearea is 2.69 cm with a dimensionless index of 0.93. The stroke volumeindex is 83.8 ml/m . 8. The mitral valve is normal, mild mitral regurgitation. 9. Tricuspid valve is normal. 10. No pericardial effusion. Chamber Sizes and Function Normal left ventricular size, mildly increased wall thickness,hyperdynamic global systolic function, calculated EF of 76 %. Severeasymmetric left ventricular hypertrophy. No resting regional wall motionabnormality visualized. Left atrial size is moderately enlarged. Rightventricular cavity size is normal, global systolic RV function is normal.RV wall thickness is normal. The right atrium is normal. Right atrialvolume index is 15 ml/m . Right atrial area is 13 cm . The pulmonaryartery is of normal size and origin. The sinus of Valsalva is normalsized. The ascending aorta is normal sized. Valves, RV Pressures and Diastolic Function The aortic valve is calcified and trileaflet, mild stenosis and trivialregurgitation. The mitral valve is normal in structure, mild mitralregurgitation. Spectral Doppler shows Grade 2 pattern of LV diastolicfilling. The tricuspid valve is normal in structure. Tricuspidregurgitation is mild regurgitation. The tricuspid regurgitant velocity is2.9 m/s, the estimated right ventricular systolic pressure is 33 mmHg plusright atrial pressure. There is mildly increased estimated pulmonarypressure by tricuspid regurgitation velocity and right atrial pressure.The pulmonic valve is normal. No pulmonary regurgitation. Masses, Effusion, Shunts There is no pericardial effusion. The inferior vena cava is normal sized,respiratory size variation greater than 50%. No left to right shunting wasdetected by limited color flow Doppler interrogation of the interatrialseptum. MEASUREMENTS AND CALCULATIONS 2-D Measurements and LV Function: LVID (d) 4.3 cm Planimetered EF 76 % LVID (s) 2.2 cm LV FS% (2D) 48 % IVS (d) 1.3 cm LVOT diameter 1.9 cm LVPW (d) 1.0 cm HR 59 bpm Ao Sinus 3.0 cm LA Vol index 44 ml/m2 Ao ST junct 2.7 cm RA Vol index 15 ml/m2 Asc Ao 3.5 cm RA area 13 cm LA 4.4 cm RV Max 4C (d) 2.9 cm Diastology: Mitral Tissue Doppler E Peak 1.1 m/s e', Septum 0.05 m/s A Peak 1.1 m/s e', Lateral 0.05 m/s E/A 1.0 E/e' Average 20.96 DT 287 msec Aortic Valve: Vmax 2.4 m/s HAMZAH (V) 2.67 cm VTI 0.59 m HAMZAH (I) 2.69 cm LVOT V max 2.2 m/s Max PG 23 mmHg LVOT VTI 0.55 m Mean PG 16 mmHg SV 160 ml Dim Index 0.93 SV index 84 ml/m CO 9.4 l/min CI 4.9 l/min/m Mitral Valve: MVA 2.6 cm MV P 1/2 83 msec Tricuspid Valve and estimated PA pressures: TR Vmax 2.9 m/s TAPSE 2.6 cm TR maxG 33 mmHg . This study was interpreted by an [facility] accredited facility. Final us Darryl Irizarry MD ECHO ORD Final Result * XR SPINE CERVICAL 3 VIEWS (05/07/2024 3:[address] REPORTER) Anatomical Region Laterality Modality CERVICAL SPINE Computed Radiogr aphy 05/08/2024 7:[address] REPORTER Impressions 05/08/2024 7:[address] REPORTER Degenerative disc disease C5-6 and C6-7. Multilevel degenerative facet arthropathy. Dictated by Aj Pandey MD @ 05/08/2024 7:29:03 AM (Electronically Signed) Narrative 05/08/2024 7:[address] REPORTER For Patients: As a result of the Century Cures Act, medical imaging exams and procedure reports are released immediately into your electronic medical record. You may view this report before your referring provider. If you have questions, please contact your health care provider. INDICATION: Chronic neck pain TECHNIQUE: Cervical spine 3 view. COMPARISON: None FINDINGS: Multilevel degenerative facet arthropathy. Lung apices clear. No vertebral body compression fracture. Discogenic spurring C5-6 and C6-7. Procedure Note Aj Pandey MD - 05/08/2024 For Patients: As a result of the Cures Act, medical imagingexams and procedure reports are released immediately into your electronicmedical record. You may view this report before your referring provider.If you have questions, please contact your health care provider. INDICATION: Chronic neck pain TECHNIQUE: Cervical spine 3 view. COMPARISON: None FINDINGS: Multilevel degenerative facet arthropathy. Lung apices clear. No vertebralbody compression fracture. Discogenic spurring C5-6 and C6-7. IMPRESSION: Degenerative disc disease C5-6 and C6-7. Multilevel degenerative facet arthropathy. Dictated by Aj Pandey MD @ 05/08/2024 7:29:03 AM (Electronically Signed) us Nadeem Ramirez MD GENERAL IMAGING Final Result * ZIO PATCH XT - weekly to monthly symptoms. (04/15/2024) 04/15/2024 Narrative Matthew Solorzano MD - 04/28/2024 12:[address] REPORTER SR with brief SVT and NSVT Please see scan document for full report. Signed By Matthew Solorzano MD Procedure Note Matthew Solorzano MD - 04/28/2024 SR with brief SVT and NSVT Please see scan document for full report. Signed By Matthew Solorzano MD us Darryl Irizarry MD CARDIAC SERVICES ORD F inal Result * XR DXA BONE DENSITY 2 SITES AXIAL (12/24/2023 9:20 AM CDT) Anatomical Region Laterality Modality Spine, HIPS, HIPL, HIPR Other Impressions 12/26/2023 4:22 PM CDT Normal bone density. RECOMMENDATIONS: The National Osteoporosis Foundation recommends pharmacologic treatment for patients with T-scores of -2.5 or less, patients with prior history of fragility fractures, or patients with 10-year probability of greater than 3% at hips or greater than 20% of suffering major osteoporotic fractures. Recommend continued optimization of calcium and vitamin D intake through dietary means and/or supplementation and regular exercise. Repeat scan recommended in 3-5 years. Haylee Albarado PA-C [facility] 12/26/2023 Narrative 12/26/2023 4:22 PM CDT For Patients: Results are automatically released to your [facility] ([employer]) account once available, in compliance with federal regulations. This means that you may see your results before your provider has had a chance to review them. Please allow 2-3 business days for your provider to comment on the results. XR DXA Bone Mineral Density (BMD) EXAM LOCATION: [address] [address] PATIENT NAME: Natividad Campo DATE OF : 1945 EXAM DATE: 12/24/2023 REQUESTING PROVIDER: Nadeem Ramirez MD GENDER AT : female HEIGHT: 5' 4.45 (12/19/2023) WEIGHT: 182 lb 12.8 oz (12/19/2023) MENOPAUSAL STATUS: Postmenopausal RACE/ETHNICITY: White RISK FACTORS: Family History of Hip Fracture (parental), Height Loss (2 inches or more), History of Fragility Fracture (at a major site), and White Race CURRENT MEDICATION FOR BONE LOSS: NONE INDICATION: Post-Menopause COMPARISON DATE(S): 2019 DXA scans are compared to prior studies for a patient only when the two (or more) studies were performed on the same scanner. It is not possible to compare data generated on one scanner to data from another because there are not standards in DXA equipment. This applies even if the two scanners are made by the same trestleman. PROCEDURE: Dual-energy x-ray absorptiometry performed with routine technique. Reporting is completed in the form of a T-score. The T-score represents the standard deviation from peak bone mass based on young healthy adult. A Z-score is used for diagnosis in premenopausal women, and for men under the age of 50. FINDINGS: RESULT LUMBAR SPINE L1 - L2 BMD: 1.441 g/cm2 T-Score: + 2.2 Z-Score: + 3.4 Change from prior in 2019: Increase 1.0%. RESULTS FEMUR Left femoral neck BMD: 1.045 g/cm2 T-Score: + 0.1 Z-Score: + 1.7 Change from prior in 2019: Decrease 2.0%. Right femoral neck BMD: 1.083 g/cm2 T-Score: + 0.3 Z-Score: + 2.0 Change from prior in 2019: Decrease 6.4%. Left hip BMD: 1.115 g/cm2 T-Score: + 0.8 Z-Score: + 2.3 Change from prior in 2019: Increase 0.1%. Right hip BMD: 1.141 g/cm2 T-Score: + 1.1 Z-Score: + 2.5 Change from prior in 2019: Increase 1.2%. WHO criteria: Normal: T-score at or above -1 SD Osteopenia: T-score between -1.1 and -2.4 SD Osteoporosis: T-score at or below -2.5 SD us Nadeem Ramirez MD DEXA Final Result * ANTI HCV (02/10/2016 7:[address] REPORTER) Pathologist [facility] HEPATITIS C ANTIBODY Non-Reacti ve Non-Reacti ve 02/10/2016 3:[address] REPORTER [facility] Blood BLOOD SPECIMEN / Unknown Venipuncture / Unknown 02/10/2016 7:[address] REPORTER 02/10/2016 7:[address] REPORTER Narrative [facility] - 02/10/2016 3:[address] REPORTER Antibodies to HCV not detected; does not exclude the possibility of exposure to HCV. us Nadeem Ramirez MD SEND OUTS Final Result [facility] 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
== END 2024-05-22 07:30 | disposition home or self-care (01) ==
PROVIDERS: Emergency Provider Family Medicine; PCP Family Medicine
DX: N30.01 Acute cystitis with hematuria (principal)
CPT/HCPCS: 81001; 87086; 99283; A9270

== ENCOUNTER 2024-10-03 17:47 | Emergency (ER) | payer MEDICARE, BC, SELFPAY ==
--- OUTSIDE RECORDS SUMMARY | 2024-10-03 17:48 | XMS_ITS | Clinical Summary ---
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 90 Tablet 3 4 Active gabapentin 300 mg capsuleIndications: Cervical radiculopathy Take 1 Capsule (300 mg) by mouth at bedtime. 30 Capsule 3 5 Active Active Problems Patient Care Coordination No [...] Encounters Date Type Department Care Team Description 10/03/2024 Nurse Triage [facility] [address] [place] [address] Nadeem Ramirez MD Blood In Stool 09/04/2024 3:40 PM CDT Office Visit [facility] [address] [place] [address] Joseph Rosario MD Musculoskeletal Problem (Follow up neck pain) 09/04/2024 Travel 08/07/2024 3:40 PM CDT Office Visit [facility] [address] [place] [address] Joseph Rosario MD Musculoskeletal Problem (Follow up neck pain, review MRI) 08/07/2024 Travel 07/17/2024 Telephone [facility] [address] [place] [address] Joseph Rosario MD Results (MRI) 07/14/2024 Orders Only [facility] Scanner 1 scan: (1-Ord) [facility], MRI CERVICAL SPINE, 07/14/2024 07/11/2024 9:40 AM CDT Office Visit [facility] [address] [place] [address] Joseph Rosario MD Musculoskeletal Problem (Consult neck pain) 07/10/2024 11:25 AM CDT Office Visit [facility] [address] [facility] [address] Nadeem Ramirez MD ER Follow up ([facility], 05/22/2024, blood in urine); Urinary Problem (Frequency, started a couple days ago) 07/10/2024 Travel 07/09/2024 Telephone [facility] [address] [place] [address] Nadeem Ramirez MD Lab (URINE CULTURE ) from Last 3 Months Immunizations Immunization Administration Dates Next Due COVID-19 VACCINE SPIKEVAX [...] Name Comments Emphysema Father Heart Disease Father [place] at 40, at 67 Heart Disease Maternal [...] on file 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 Gender Identity Not on file Sexual Orientation Not on file Obstetrics History Last Filed Vital Signs Vital Sign Reading Time Taken Comments Blood Pressure 125/75 09/04/2024 3:27 PM CDT Pulse 59 09/04/2024 3:27 PM CDT Temperature 36.7 C (98.1 F) 09/04/2024 3:27 PM CDT Respiratory Rate 11 11/28/2022 2:09 PM CDT Oxygen Saturation 97% 09/04/2024 3:27 PM CDT Inhaled Oxygen Concentration - - Weight 85.7 kg (189 lb) 09/04/2024 3:27 PM CDT Height 163.7 cm (5' 4.45) 12/19/2023 1:55 PM CD T Body Mass Index 31.99 12/19/2023 1:55 PM CDT Plan of Treatment Upcoming Encounters Date Type Department Care Team (Late st Contact Info) Description 10/09/2024 11:50 AM CDT Office Visit [facility] [address] [place] [address] Nadeem Ramirez MD [address] [place] [address] Health Maintenance Due Date Last Done Comments Influenza Vaccine (#1) 2024 , 01/27/2019, 12/29/2017, Additional history exists BMI (ht and wt on same day) for age 18+ 12/18/2024 12/19/2023, 12/14/2022, 12/26/2021, Additional history exists Depression screening for age 12+ 12/18/2024 12/19/2023, 12/14/2022, 12/14/2021, Additional history exists Medicare Wellness for age 65+ 12/19/2024, 12/14/2022, 12/13/2021, Additional history exists Tetanus booster 09/06/2027 09/05/2017, 05/24, 01/24/1999 Hepatitis B series for 19+ Completed 10/04, 03/02/1999, 01/27/1999 Hepatitis C screening for ag e 18-79 Completed 02/10/2016, 04/29/2013 Zoster (shingles) series for age 50+ Completed 11/19/2017, 09/05/2017, 06/01/2008 Pneumococcal series for age 50+ Completed 12/14/2022, 10/21/2014, 11/10/2011 RSV vaccine for adults or Completed 12/23/2022 DEXA/DXA scan for age 65+ Completed 2023, 09/24/2018, 05/13/2013, Additional history exists COVID-19 vaccine series Completed 08/06/19, 12/19/2023, 06/11/2023, Additional history exists Procedures Procedure Name Priority Date/Time Associated Diagnosis Comments SCAN-MRI INTERPRETATION 07/14/2024 12:00 AM CDT URINALYSIS [facility] ONLY POC DIP (QUEST) Routine 07/10/2024 11:30 AM CDT Dysuria URINALYSIS MICROSCOPIC Routine 11:28 AM CDT Dysuria URINE CULTURE Routine 07/10/2024 11:28 AM CDT Dysuria XR DXA BONE DENSITY 2 SITES AXIAL Routine 12/24/2023 9:20 AM CDT Asymptomatic postmenopausal state ANTI HCV Routine 02/10/2016 7:56 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 Need for hepatitis C screening test from Last 3 Months or Most Recently Relevant to Health Maintenance Results * SCAN-MRI INTERPRETATION (07/14/2024 12:00 AM CDT) Anatomical Region Laterality Modality Other us Scanner OTHER Final Result * (ABNORMAL) POCT Urinalysis Dipstick Only [[id number]] (07/10/2024 11:30 AM CDT) PH 6.0 5.0 - 8.0 [facility] SPECIFIC GRAVITY 1.015 1.001 - 1.035 [facility] GLUCOSE NEGATIVE NEGATIVE [facility] BILIRUBIN NEGATIVE NEGATIVE [facility] KETONES NEGATIVE NEGATIVE [facility] OCCULT BLOOD TRACE(A) NEGATIVE [facility] PROTEIN NEGATIVE NEGATIVE [facility] NITRITE NEGATIVE NEGATIVE [facility] LEUKOCYTE ESTERASE TRACE(A) NEGATIVE [facility] Urine URINE SPECIMEN / Unknown 07/10/2024 11:30 AM CDT 07/10/2024 11:30 AM CDT us Nadeem Ramirez MD URINE Final Result [facility] [address] [place] [address], [facility] [address] [place] [address] * URINALYSIS MICROSCOPIC [[id number]] - routine (07/10/2024 11:28 AM CDT) RBC 0-2 0-2, None Seen /HPF 07/10/2024 4:12 PM CDT [facility] WBC 0-2 0-2, 3-5, None Seen /HPF 07/10/2024 4:12 PM CDT [facility] BACTERIA None Seen None Seen, Rare, Few Bacteria/ HPF 07/10/2024 4:12 PM CDT [facility] EPITHELIAL CELLS None Seen None Seen, Few Epi/HPF 07/10/2024 4:12 PM CDT [facility] HYALINE CASTS 0-2 0-2, 3-5 /LPF 07/10/2024 4:12 PM CDT [facility] Urine URINE SPECIMEN / Unknown Non-Blood / Unknown 07/10/2024 11:28 AM CDT 07/10/2024 11:28 AM CDT us Nadeem Ramirez MD URINE Final Result Performing Organization Address City/[facility]/ZIP Co de Phone Number [facility] [address] [place] [address], [place] * URINE CULTURE [[id number]] (07/10/2024 11:28 AM CDT) CULTURE <10,000 CFU/mL multiple organisms 07/11/2024 1:45 PM CDT [facility] Urine URINE SPECIMEN / Unknown Non-Blood / Unknown 07/10/2024 11:28 AM CDT 07/10/2024 11:28 AM CDT Nadeem Ramirez MD MICROBIOLOGY Final Result Performing Organization Address [facility] Co de Phone Number [facility] [address] [place] [address], [place] * XR DXA BONE DENSITY 2 SITES [...] recommended in 3-5 years. Haylee Albarado PA-C [facility] 12/26/2023 Narrative 12/26/2023 4:22 PM CDT For Patients: Results are automatically released to your [facility]Only [place] account once available, in compliance with federal regulations. This means that you may see your results before your provider has had a chance to review them. Please allow 2-3 business days for your provider to comment on the results. XR DXA Bone Mineral Density (BMD) EXAM LOCATION: [address] [address] PATIENT NAME: Natividad Campo DATE OF : [...] two scanners are made by the same hemodialysis technician. PROCEDURE: Dual-energy x-ray absorptiometry performed with routine [...] Result * ANTI HCV (02/10/2016 7:56 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) HEPATITIS C ANTIBODY Non-Reacti ve Non-Reacti ve 02/10/2016 3:20 PM MATERIAL HANDLER LOADER [facility] Blood BLOOD SPECIMEN / Unknown Venipuncture / Unknown 02/10/2016 7:56 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 02/10/2016 7:56 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 Narrative [facility] - 02/10/2016 3:20 PM MATERIAL HANDLER LOADER Antibodies to HCV not detected; does not exclude the possibility of exposure to HCV. us Nadeem Ramirez MD SEND OUTS Final Result [facility] [address] [place] [address], from Last 3 Months or Most Recently Relevant to Health Maintenance Insurance [employer] PB ONLY MEDICARE PART B HB ONLY [employer] BL[employer] HB ONLY Care Teams Coal Tower Operator Relationship Specialty Start Date End Date Nadeem Ramirez MD [address] [place] [address] PCP - General 10/10/05
[2024-10-03 18:12] VITALS: BP 151/63; PULSE 69; RESP 18; TEMP 36.4; O2SAT 95
[2024-10-03] MEDS: DOCUSATE SODIUM/BENZOCAINE 5 ML ENEMA PR (19:38)
--- NOTE | 2024-10-03 19:40 | ED.GENADULT ---
HPI - General Adult General Date Seen: 10/03/24 Chief complaint: Constipation Stated complaint: rectal pain Time Seen by Provider: 10/03/24 18:11 Source: patient Mode of arrival: ambulatory Limitations: no limitations History of Present Illness HPI narrative: Patient presents here with a history of constipation she took milk of magnesia, Fleet suppositories to send a consult today she has hemorrhoids and started have some bleeding, she is having acute will with his eyes feels like she has to passed some hard stuff. So rectal pain. History in the past the anal fissure. No nausea no vomiting, otherwise feels well. No fevers chills or sweats Related Data Home Medications ?Medication ?Instructions ?Recorded ?Confirmed atorvastatin 20 mg PO HS 12/17/21 10/03/24 cholecalciferol (vitamin D3) 25 25 mcg PO DAILY 12/27/21 10/03/24 mcg (1,000 unit) capsule famotidine 20 mg tablet 20 mg PO BID PRN 12/27/21 10/03/24 metoprolol succinate 25 mg 25 mg PO DAILY 12/27/21 10/03/24 tablet,extended release 24 hr Allergies Allergy/AdvReac Type Severity Reaction Status Date / Time No Known Drug Allergies Allergy Verified 10/03/24 18:18 Review of Systems Status of ROS: Reports: 10 or more systems reviewed and unremarkable except as noted in History and below [facility] Medical History [place] on CPAP ?G47.33 - Obstructive sleep apnea (adult) (pediatric) (ICD-10) ?Z99.89 - Dependence on other enabling machines and devices (ICD-10) Obesity ?E66.9 - Obesity, unspecified (ICD-10) Impaired fasting glucose ?R73.01 - Impaired fasting glucose (ICD-10) Hypertrophic cardiomyopathy ?I42.2 - Other hypertrophic cardiomyopathy (ICD-10) Hyperlipidemia ?E78.5 - Hyperlipidemia, unspecified (ICD-10) Closed fracture of unspecified part of humerus ?S42.309A - Unspecified fracture of shaft of humerus, unspecified arm, initial encounter for closed fracture (ICD-10) Cellulitis and abscess of other specified site ?L03.818 - Cellulitis of other sites (ICD-10) ?L02.818 - Cutaneous abscess of other sites (ICD-10) Anal fissure ?K60.2 - Anal fissure, unspecified (ICD-10) Surgical History History of excision of mass (02/20/22) ?Z98.890 - Other specified postprocedural states (ICD-10) Hx of rhinoplasty ?Z98.890 - Other specified postprocedural states (ICD-10) Hx of hysterectomy ?Z90.710 - Acquired absence of both cervix and uterus (ICD-10) History of total left knee replacement (TKR) (~12/2010) ?Z96.652 - Presence of left artificial knee joint (ICD-10) Hx of dilation and curettage ?Z98.890 - Other specified postprocedural states (ICD-10) Hx of colonoscopy ?Z98.890 - Other specified postprocedural states (ICD-10) Hx of cholecystectomy ?Z90.49 - Acquired absence of other specified parts of digestive tract (ICD-10) Social History Smoking Status: Never smoker Do you use any of these nicotine containing products: None How often do you have a drink containing alcohol: monthly or less Alcohol type: wine How many standard drinks containing alcohol do you have on a typical day: 1 or 2 How often do you have six or more drinks on one occasion: Never AUDIT-C Alcohol total score: 1 Non-prescribed substance use: denies use Caffeine: Yes (daily) Are you using contraception or practicing any form of control: No Exam Narrative: Exam Narrative: This is a delightful woman seen in room 6, accompanied by my nurse Bessy. Her abdomen is soft and obese there is no guarding no organomegaly bowel sounds are normal, rectal area shows a lot of hemorrhoidal tissue, both external, and internal none of which thrombosed, some of them are bleeding, at 6 o'clock position. There appears to be a slight anal fissure also. Some hard stool hot high up, she was able to bear down and I was able to bring out some of the stool through disimpaction. We will try Enemeez enema. Const: Vital Signs, click to edit/add: Vital Signs - 24 hr 10/03/24 18:12 Temperature 97.6 F Pulse Rate [Pulse Oximeter] 69 Respiratory Rate 18 Blood Pressure [Ri ght Upper Arm] 151/63 H Pulse Oximetry 95 Oxygen Delivery Me thod Room Air Course Course ED Course: After the Enemeez enema patient had a large bowel movement feels a lot better, this point we can discharge her home. Vital Signs Vital signs: Initial Vital Signs Temperature 97.6 F 10/03/24 18:12 Temperature Source Temporal Artery Scan 10/03/24 18:12 Pulse Rate 69 10/03/24 18:12 Pulse Rhythm Regular 10/03/24 18:12 Respiratory Rate 18 10/03/24 18:12 Blood Pressure 151/63 H 10/03/24 18:12 Blood Pressure Mean 92 10/03/24 18:12 Blood Pressure Position Sitting 10/03/24 18:12 Pulse Oximetry 95 10/03/24 18:12 Oxygen Delivery Method Room Air 10/03/24 18:12 Vital Signs Temperature 97.6 F 10/03/24 18:12 Pulse Rate 69 10/03/24 18:12 Respiratory Rate 18 10/03/24 18:12 Blood Pressure 151/63 H 10/03/24 18:12 Pulse Oximetry 95 10/03/24 18:12 Oxygen Delivery Method Room Air 10/03/24 18:12 Temperature 97.6 F 10/03/24 18:12 Pulse Rate 69 10/03/24 18:12 Respiratory Rate 18 10/03/24 18:12 Blood Pressure 151/63 H 10/03/24 18:12 Pulse Oximetry 95 10/03/24 18:12 Oxygen Delivery Method Room Air 10/03/24 18:12 Medications Administered Medications: Discontinued Medications Generic Name Dose Route Start Last Admin Trade Name Freq PRN Reason Stop Dose Admin Docusate Sodium/Benzocaine 5 ml 10/03/24 19:34 10/03/24 19:38 Docusate Sodium/Benzocaine 5 Ml Enema NV 10/03/24 19:35 5 ml ONCE ONE Administration Discharge Plan Discharge Clinical Impression: Constipation, External hemorrhoids Patient Disposition: Home, Self-Care Condition: Stable Instructions: Constipation (DC), Fleet Enema (ED) Additional Instructions: Home rest, use of MiraLax, I would use this twice daily for the next couple days, I do recommend that you not use senna S as you will get very crampy secondary to this. Follow-up with her doctor next week to discuss any known needed issues such as follow-up colonoscopy. Return here if lots of bleeding, nausea vomiting or increasing pain. Fiber, fiber, fiber Activity Level: Light activity Prescriptions: No Action atorvastatin 20 mg PO HS famotidine 20 mg tablet 20 mg PO BID PRN metoprolol succinate 25 mg tablet extended release 24 hr 25 mg PO DAILY cholecalciferol (vitamin D3) 25 mcg (1,000 unit) capsule 25 mcg PO DAILY Follow Up/Referrals: Nadeem Ramirez MD [Primary Care Provider, Family Practice] Stand Alone Forms: [employer] Info Instructions
--- NOTE | 2024-10-03 20:21 | PC.NURSE ---
moderate amount of dark foul smelling stool per patient
== END 2024-10-03 20:45 | disposition home or self-care (01) ==
LOC: ED 20:46
PROVIDERS: Emergency Provider Family Medicine; PCP Family Medicine
DX: K59.00 Constipation, unspecified (principal); K64.8 Other hemorrhoids
CPT/HCPCS: 99283; A9270